=== PATIENT | female | born 1980 | race Caucasian/White ===

== ENCOUNTER 2017-07-09 19:57 | Emergency (ER) | payer BC ==
[~2017-07-09] VITALS: Ht 152.4 cm; Wt 61.2 kg
[2017-07-09] MEDS ORDERED: NADOLOL20 MG ORAL (20:17)
[2017-07-09 20:20] VITALS: BP 129/87
[2017-07-09] MEDS ORDERED: TAMIFLU75 MG ORAL (21:09)
[2017-07-09 21:20] VITALS: BP 132/84
--- NOTE | 2017-07-10 00:04 | Emergency Room Report ---
History of Present Illness General Chief Complaint: Upper Respiratory Illness Source: Patient Present Illness HPI 37-year-old female cough, runny nose, congestion for 2 weeks. Cough is dry. Also states that her nose is congestion and clogged Pt still eating/drinking well. +sick contacts. No recent travel. No SOB, cp, abdominal pain, n/v/d. Allergies: Coded Allergies: AMOXICILLIN (Verified Allergy, Unknown, 07/09/17) PENICILLINS (Verified Allergy, Unknown, 07/09/17) Patient History Past Medical History: see triage record Past Surgical History: none Pertinent Family History: none Last Menstrual Period: LAST MONTH Reviewed Nursing Documentation: PMH: Agreed, PSxH: Agreed Nursing Documentation-PMH Hx Hypertension: Yes Review of Systems All Other Systems: negative except mentioned in HPI Physical Exam Vital Signs Date Time Temp Pulse Resp B/P (MAP) Pulse Ox O2 Delivery O2 Flow Rate FiO2 07/09/17 20:12 98.1 90 16 125/88 96 Room Air Sp02 EP Interpretation: reviewed, normal General Appearance: normal inspection, well appearing, no apparent distress, alert, GCS 15, non-toxic Head: normocephalic, atraumatic Eyes: bilateral eye normal inspection, bilateral eye PERRL, bilateral eye EOMI ENT: normal ENT inspection, normal pharynx, normal voice, moist mucus membranes Neck: normal inspection, full range of motion, supple Respiratory: normal inspection, lungs clear, normal breath sounds, no respiratory distress, no retraction, no wheezing, speaking full sentences, chest symmetrical Cardiovascular #1: normal inspection, regular rate, rhythm, no edema, normal capillary refill Cardiovascular #2: 2+ radial (R), 2+ radial (L) Gastrointestinal: normal inspection, non tender, soft, non-distended, no guarding Musculoskeletal: normal inspection, back normal, normal range of motion, non- tender Neurologic: normal inspection, alert, oriented x3, responsive, motor strength/ tone normal, sensory intact, normal gait, speech normal Psychiatric: normal inspection, judgement/insight normal, memory normal Skin: normal inspection, normal color, no rash, warm/dry, well hydrated, normal turgor Medical Decision Making Diagnostic Impression: Primary Impression: Influenza-like illness ER Course 37-year-old female p/w fever, chills, runny nose, cough Appears non- toxic, well hydrated, tolerating PO DDX: Viral Uri Plan: None in Emergency Room ER course: Pt stable in ED, remains nontoxic appearing, no sob. Tolerating PO Disposition: Patient discharged to home with Tamiflu, although patient was educated that this likely does not work if not taking within the first 3 days of illness Patient instructed to follow up with PMD in 1 week. Also instructed to take motrin/tylenol at home. Very strict return precautions discussed with patient such as intractable fever and chills, unable to eat or drink, severe chest pain or shortness of breath. Patient verbalized understanding and agrees with plan. Please note that this Emergency Department Report was dictated using [employer] software, occasionally this can lead to erroneous entry secondary to interpretation by the dictation equipment Last Vital Signs Date Time Temp Pulse Resp B/P (MAP) Pulse Ox O2 Delivery O2 Flow Rate FiO2 07/09/17 20:12 98.1 90 16 125/88 96 Room Air Disposition: HOME, SELF-CARE Condition: Stable Scripts Oseltamivir Phosphate (Tamiflu) 75 Mg Capsule 75 MG ORAL TWICE A DAY for 5 Days, #10 CAP 0 Refills Prov: Valerie Manning M.D. 07/09/17 Referrals: NON PHYSICIAN (PCP) Patient Instructions: Upper Respiratory Infection, Adult Valerie Manning M.D. Jul 10, 2017 00:04
== END 2017-07-09 21:40 | disposition home or self-care (01) ==
LOC: EMR 21:36
DX: J11.1 Influenza due to unidentified influenza virus with other respiratory manifestations (principal); I10 Essential (primary) hypertension; Z88.1 Allergy status to other antibiotic agents; Z88.0 Allergy status to penicillin
CPT/HCPCS: 99283